=== PATIENT | female | born 1990 | race Two or more races ===

== ENCOUNTER 2021-10-11 22:21 | Emergency (ER) | payer OTHER ==
[~2021-10-11] VITALS: Ht 154.9 cm; Wt 82.6 kg
[2021-10-11 23:01] VITALS: BP 139/87
== END 2021-10-12 04:17 | disposition left against medical advice (07) ==
LOC: EDBD 22:21 → ER 22:24
DX: R07.89 Other chest pain (principal); J45.909 Unspecified asthma, uncomplicated
CPT/HCPCS: 71045; 93005